=== PATIENT | female | born 1960 | race Two or more races ===

== ENCOUNTER 2024-05-25 06:00 | Day surgery (SDC) | payer OTHER ==
[2024-05-20 13:20] VITALS: BP 150/67
[~2024-05-25] VITALS: Ht 154.9 cm; Wt 82.6 kg
[~2024-05-25 06:00] MED LIST: COZAAR25 MG PO
[2024-05-25] MEDS ORDERED: POVIDONE-IODINE 118 ML BOTT TOP ONE (12:09)
[2024-05-25] MEDS ORDERED: IBU600 MG PO (13:36)
== END 2024-05-25 18:00 | disposition home or self-care (01) ==
LOC: CIR.AMB 06:00
PROVIDERS: ATTEND Obstetrics & Gynecology Gynecology
DX: C54.1 Malignant neoplasm of endometrium (principal); N95.0 Postmenopausal bleeding